=== PATIENT | female | born 1955 | race Two or more races ===

== ENCOUNTER 2020-07-31 10:26 | Inpatient (IN) | payer OTHER ==
[~2020-07-31] VITALS: Ht 160 cm; Wt 96.4 kg
[2020-07-31] MEDS ORDERED: KETOROLAC 30MG/ML VIAL IV STA (10:43)
[2020-07-31] MEDS ORDERED: INSULIN REGULAR (HUMULIN R) 300UNITS/3ML VIAL IV ONE (11:00)
[2020-07-31] MEDS ORDERED: DILTIAZEM HCL 5MG/ML 5ML VIAL IV ONE ×3 (11:00→12:00)
[2020-07-31] MEDS ORDERED: SODIUM CHLORIDE 0.9% 1,000 ML IV ONE (11:00)
[2020-07-31] MEDS ORDERED: DILTIAZEM HCL 180MG CAPSULE CD 24HR PO ONE (11:00)
[2020-07-31] MEDS ORDERED: DILTIAZEM HCL 125 MG in DEXT 5% WATER 100 ML IV ONE ×2 (12:00→14:00)
[2020-07-31] MEDS ORDERED: SODIUM CHLORIDE 0.9% 500 ML IV ONE (12:00)
[2020-07-31 12:22] LABS: HEMATOCRIT. 36.9 % (36.0-48.0); HEMOGLOBIN. 11.4 g/dL (12.0-16.0); MEAN CORPUSCULAR HEMOGLOBIN 23.7 pg (28.0-32.0); MEAN CORPUSCULAR VOLUME 76.5 fL (81.0-99.0); MEAN PLATELET VOLUME 8.4 fl (7.4-10.4); PLATELET 191 x1000/uL (130-400); RED BLOOD CELL COUNT 4.82 mill/uL (4.2-5.4); RED CELL DISTRIBUTION WIDTH 18.3 % (11.6-14.6)
[2020-07-31 12:29] LABS: CHLORIDE 97 mEq/L (98-107)
[2020-07-31 12:33] LABS: ETHANOL BLOOD < 10 mg/dL
[2020-07-31 12:52] LABS: PLATELET ESTIMATE NORMAL
[2020-07-31] MEDS ORDERED: ADENOSINE 3 MG/ML 2ML VIAL IV ONE (13:15)
[2020-07-31] MEDS ORDERED: ESMOLOL HCL 10MG/ML 10ML VIAL IV ONE (15:00)
[2020-07-31] MEDS ORDERED: ENOXAPARIN 80MG/0.8ML SYR SUBCUT NR (17:30)
[2020-07-31] MEDS ORDERED: ONDANSETRON HCL 4MG/2ML INJ IV PRN (19:00)
[2020-07-31] MEDS ORDERED: HYDROCODONE/ACETAMINOPHEN 5/325MG TABLET PO PRN (19:00)
[2020-07-31] MEDS ORDERED: DOCUSATE SODIUM 100MG CAPSULE PO PRN (19:00)
[2020-07-31] MEDS ORDERED: GUAIFENESIN 200MG/10ML SUGAR FREE UDC PO PRN (19:00)
[2020-07-31] MEDS ORDERED: DIPHENHYDRAMINE 50MG/ML VIAL IV PRN (19:00)
[2020-07-31] MEDS ORDERED: DEXTROSE 50% WATER 50ML SYRINGE IV PRN ×3 (19:00→19:15)
[2020-07-31] MEDS ORDERED: NA PHOS,M-B/NA PHOS,DI-BA ENEMA 118ML PR PRN (19:00)
[2020-07-31] MEDS ORDERED: INSULIN REGULAR (DRIP) 100 UNITS in SODIUM CHLORIDE 0.9% 99 ML IV PRN (19:00)
[2020-07-31] MEDS ORDERED: LORAZEPAM 0.5MG TABLET PO PRN (19:00)
[2020-07-31] MEDS ORDERED: CLONIDINE 0.1MG TABLET PO PRN (19:00)
[2020-07-31] MEDS ORDERED: ACETAMINOPHEN 325MG TABLET PO PRN (19:00)
[2020-07-31] MEDS ORDERED: MAGNESIUM/ALUMINUM HYDROXIDE/SIMETHICONE 30ML UDC PO PRN (19:00)
[2020-07-31] MEDS ORDERED: ACETAMINOPHEN 650MG SUPP PR PRN (19:00)
[2020-07-31 19:21] LABS: BG BASE EXCESS -7.7 mmol/L (-2.0-2.0); BG CARBOXYHEMOGLOBIN 0.9 % (0.5-1.5); BG DEOXYHEMOGLOBIN 5.8 % (0.0-5.0); BG FRACTION INSPIRED OXYGEN 21; BG HCO3 ACT 16.3 mmol/L (22.0-26.0); BG METHEMOGLOBIN 0.3 % (0.0-1.5); BG OXYGEN SATURATION 94.1 % (92.0-98.5); BG PCO2 28.8 mmHg (35.0-45.0); BG PO2 75.1 mmHg (75.0-100.0); BG SAMPLE SITE LEFT RADIAL; BG TOTAL HEMOGLOBIN 11.7 g/dL (12.0-18.0); BG VENT MODE ROOM AIR
[2020-07-31] MEDS ORDERED: INSULIN REGULAR (DRIP) 100 UNITS in SODIUM CHLORIDE 0.9% 100 ML IV SCH ×2 (20:00)
[2020-07-31] MEDS ORDERED: BLOOD SUGAR DIAGNOSTIC STRIP TEST SCH (20:00)
[2020-07-31] MEDS: BLOOD SUGAR DIAGNOSTIC STRIP TEST SCH ×4 (20:00→23:29)
[2020-07-31] MEDS: SODIUM CHLORIDE 0.9% 1,000 ML IV SCH (21:08)
[2020-07-31] MEDS: FAMOTIDINE 20MG/2ML VIAL IV SCH (21:08)
[2020-07-31] MEDS: PIPERACILLIN/TAZ 3.375G PREMIX 50 ML IV SCH (21:08)
[2020-08-01] MEDS: BLOOD SUGAR DIAGNOSTIC STRIP TEST SCH ×20 (00:35→20:41)
[2020-08-01] MEDS: PIPERACILLIN/TAZ 3.375G PREMIX 50 ML IV SCH ×4 (00:52→20:37)
[2020-08-01 01:17] LABS: CHLORIDE 101 mEq/L (98-107)
[2020-08-01 01:24] LABS: LDL CHOLESTEROL 40 mg/dL (5-100); PHOSPHORUS 1.9 mg/dL (2.5-4.9)
[2020-08-01 01:26] LABS: HDL CHOLESTEROL 25 mg/dL (40-59)
[2020-08-01 01:27] LABS: CREATINE KINASE 559 IU/L (26-192)
[2020-08-01 01:28] LABS: CREATINE KINASE MB FRACTION 8.2 ng/mL (0.5-3.6)
[2020-08-01 01:37] LABS: INR 1.1; PROTHROMBIN TIME 11.9 sec (9.6-11.0)
[2020-08-01 04:39] LABS: HEMATOCRIT. 35.9 % (36.0-48.0); HEMOGLOBIN. 11.7 g/dL (12.0-16.0); MEAN CORPUSCULAR HEMOGLOBIN 24.4 pg (28.0-32.0); PLATELET 198 x1000/uL (130-400); RED BLOOD CELL COUNT 4.79 mill/uL (4.2-5.4)
[2020-08-01 04:46] LABS: CHLORIDE 103 mEq/L (98-107)
[2020-08-01 04:49] LABS: INR 1.1; PROTHROMBIN TIME 11.9 sec (9.6-11.0)
[2020-08-01 04:54] LABS: LDL CHOLESTEROL 42 mg/dL (5-100)
[2020-08-01 04:55] LABS: CREATINE KINASE 649 IU/L (26-192); CREATINE KINASE MB FRACTION 7.1 ng/mL (0.5-3.6); HDL CHOLESTEROL 28 mg/dL (40-59)
[2020-08-01 04:56] LABS: T4 FREE 1.61 ng/dL (0.76-1.46)
[2020-08-01] MEDS: SODIUM CHLORIDE 0.9% 1,000 ML IV SCH (05:11)
[2020-08-01 05:59] LABS: PLATELET ESTIMATE NORMAL
[2020-08-01] MEDS: ASPIRIN 81MG EC TABLET PO SCH (09:00)
[2020-08-01] MEDS: FAMOTIDINE 20MG/2ML VIAL IV SCH (09:00)
[2020-08-01] MEDS: KCL 20MEQ/100ML PREMIX 100 ML IV SCH ×2 (10:00→10:09)
[2020-08-01] MEDS ORDERED: LIDOCAINE HCL 1% 20ML VIAL (Pyxis) INJ ONE (10:51)
[2020-08-01] MEDS: ENOXAPARIN 80MG/0.8ML SYR SUBCUT SCH (11:00)
[2020-08-01] MEDS: VANCOMYCIN 1 G PREMIX 200 ML IV SCH (11:00)
[2020-08-01] MEDS ORDERED: DEXT 5%/0.9% NACL 1,000 ML IV ONE (12:30)
[2020-08-01] MEDS ORDERED: DEXTROSE 50% WATER 50ML SYRINGE IV PRN (13:00)
[2020-08-01] MEDS: INSULIN LISPRO 100 UNITS/ML SUBCUT SCH ×2 (13:28→20:47)
[2020-08-01] MEDS: DILTIAZEM HCL 60MG TABLET PO SCH (14:00)
[2020-08-01] MEDS ORDERED: INSULIN GLARGINE UD 100 UNITS/ML SYR SUBCUT SCH (23:45)
[2020-08-02 05:17] LABS: HEMATOCRIT. 30.5 % (36.0-48.0); HEMOGLOBIN. 9.8 g/dL (12.0-16.0); MEAN CORPUSCULAR HEMOGLOBIN 23.9 pg (28.0-32.0); MEAN CORPUSCULAR VOLUME 74.9 fL (81.0-99.0); MEAN PLATELET VOLUME 8.4 fl (7.4-10.4); PLATELET 165 x1000/uL (130-400); RED BLOOD CELL COUNT 4.08 mill/uL (4.2-5.4); RED CELL DISTRIBUTION WIDTH 18.1 % (11.6-14.6)
[2020-08-02] MEDS: PIPERACILLIN/TAZ 3.375G PREMIX 50 ML IV SCH ×2 (05:48→23:56)
[2020-08-02] MEDS: DILTIAZEM HCL 60MG TABLET PO SCH ×4 (06:00→22:34)
[2020-08-02 07:45] LABS: PLATELET ESTIMATE NORMAL
[2020-08-02] MEDS: INSULIN LISPRO 100 UNITS/ML SUBCUT SCH ×6 (07:50→22:28)
[2020-08-02] MEDS: BLOOD SUGAR DIAGNOSTIC STRIP TEST SCH ×4 (09:52→22:28)
[2020-08-02] MEDS: VANCOMYCIN 1 G PREMIX 200 ML IV SCH (10:00)
[2020-08-02] MEDS ORDERED: INSULIN GLARGINE UD 100 UNITS/ML SYR SUBCUT SCH ×2 (10:00→22:00)
[2020-08-02] MEDS: FAMOTIDINE 20MG/2ML VIAL IV SCH (10:10)
[2020-08-02] MEDS: ASPIRIN 81MG EC TABLET PO SCH (10:10)
[2020-08-02] MEDS: ENOXAPARIN 80MG/0.8ML SYR SUBCUT SCH ×2 (22:16→22:27)
[2020-08-02] MEDS: SODIUM CHLORIDE 0.9% 1,000 ML IV SCH (22:27)
[2020-08-03] MEDS: SODIUM CHLORIDE 0.9% 1,000 ML IV SCH ×2 (03:31→14:45)
[2020-08-03 04:40] LABS: BASOPHILS % 0.5 % (0.0-2.0); CHLORIDE 105 mEq/L (98-107); EOSINOPHILS % 2.4 % (0.0-5.0); HEMATOCRIT. 30.2 % (36.0-48.0); HEMOGLOBIN. 9.8 g/dL (12.0-16.0); LYMPHOCYTES % 13.1 % (20.0-50.0); MEAN PLATELET VOLUME 7.9 fl (7.4-10.4); MONOCYTES % 3.9 % (2.0-8.0); NEUTROPHILS % 80.1 % (40.0-76.0); PLATELET 142 x1000/uL (130-400); RED BLOOD CELL COUNT 4.08 mill/uL (4.2-5.4); RED CELL DISTRIBUTION WIDTH 18.1 % (11.6-14.6)
[2020-08-03] MEDS: PIPERACILLIN/TAZ 3.375G PREMIX 50 ML IV SCH ×3 (06:04→18:00)
[2020-08-03] MEDS: DILTIAZEM HCL 60MG TABLET PO SCH ×3 (06:05→22:00)
[2020-08-03] MEDS: INSULIN LISPRO 100 UNITS/ML SUBCUT SCH ×7 (06:30→21:00)
[2020-08-03] MEDS: BLOOD SUGAR DIAGNOSTIC STRIP TEST SCH ×4 (06:59→21:00)
[2020-08-03] MEDS ORDERED: POTASSIUM CHLORIDE INJ 40 MEQ in DEXT 5% WATER 250 ML IV SCH (09:00)
[2020-08-03] MEDS: ASPIRIN 81MG EC TABLET PO SCH (10:41)
[2020-08-03] MEDS: ENOXAPARIN 80MG/0.8ML SYR SUBCUT SCH ×2 (10:42→21:00)
[2020-08-03] MEDS ORDERED: LORAZEPAM 2MG/ML CPJ IV PRN ×2 (11:45→23:45)
[2020-08-03] MEDS: FAMOTIDINE 20MG/2ML VIAL IV SCH (12:27)
[2020-08-03 13:59] LABS: CLARITY URINE TURBID (CLEAR); COLOR URINE YELLOW (YELLOW); KETONES URINE 1+ (NEGATIVE); LEUKOCYTE ESTERASE URINE 1+ (NEGATIVE); NITRITE URINE NEGATIVE (NEGATIVE); OCCULT BLOOD URINE 2+ (NEGATIVE); PH URINE 5.5 (4.5-8.0); PROTEIN URINE TRACE (NEGATIVE); SPECIFIC GRAVITY URINE 1.015 (1.005-1.030)
[2020-08-03 23:25] VITALS: BP 135/67
[2020-08-04] VITALS (11 sets, daily range): BP systolic 123–164; BP diastolic 61–77
[2020-08-04] MEDS: INSULIN GLARGINE UD 100 UNITS/ML SYR SUBCUT SCH ×3 (00:29→22:38)
[2020-08-04] MEDS: SODIUM CHLORIDE 0.9% 1,000 ML IV SCH (00:55)
[2020-08-04] MEDS: PIPERACILLIN/TAZOBACTAM 3.375 G in DEXT 5% WATER 100 ML IV SCH ×4 (01:56→20:42)
[2020-08-04 06:11] LABS: CHLORIDE 108 mEq/L (98-107)
[2020-08-04 06:15] LABS: BASOPHILS % 0.2 % (0.0-2.0); HEMATOCRIT. 26.6 % (36.0-48.0); HEMOGLOBIN. 8.7 g/dL (12.0-16.0); LYMPHOCYTES % 12.4 % (20.0-50.0); MEAN CORPUSCULAR HEMOGLOBIN 23.9 pg (28.0-32.0); MEAN CORPUSCULAR VOLUME 73.5 fL (81.0-99.0); MEAN PLATELET VOLUME 8.3 fl (7.4-10.4); NEUTROPHILS % 80.4 % (40.0-76.0); PLATELET 156 x1000/uL (130-400); RED BLOOD CELL COUNT 3.62 mill/uL (4.2-5.4); RED CELL DISTRIBUTION WIDTH 17.7 % (11.6-14.6)
[2020-08-04] MEDS: DILTIAZEM HCL 60MG TABLET PO SCH ×3 (06:30→22:37)
[2020-08-04] MEDS: BLOOD SUGAR DIAGNOSTIC STRIP TEST SCH ×4 (06:50→21:39)
[2020-08-04] MEDS ORDERED: POTASSIUM CHLORIDE 20MEQ TABLET SR PO NR ×4 (07:00→21:00)
[2020-08-04] MEDS: INSULIN LISPRO 100 UNITS/ML SUBCUT SCH ×7 (07:06→21:00)
[2020-08-04] MEDS: FAMOTIDINE 20MG/2ML VIAL IV SCH (08:30)
[2020-08-04] MEDS: ASPIRIN 81MG EC TABLET PO SCH (08:30)
[2020-08-04] MEDS: ENOXAPARIN 80MG/0.8ML SYR SUBCUT SCH (08:31)
[2020-08-04] MEDS ORDERED: MAGNESIUM 1 G PREMIX 100 ML IV SCH (11:00)
[2020-08-04] MEDS: LACTULOSE 20G/30ML UDC PO SCH ×2 (11:08→14:00)
[2020-08-04] MEDS: VANCOMYCIN 1,250 MG in DEXT 5% WATER 250 ML IV SCH (16:00)
[2020-08-04] MEDS ORDERED: SULF1TAB48 MT (16:08)
[2020-08-04] MEDS ORDERED: DILT60TA41 MT (16:09)
[2020-08-04] MEDS ORDERED: PROT40 MT (16:09)
[2020-08-04] MEDS ORDERED: INSU100I28 SQ (16:09)
[2020-08-04] MEDS ORDERED: FERR325T23 MT (17:06)
[2020-08-04] MEDS: PANTOPRAZOLE SODIUM 40 MG/VIAL IV SCH (17:31)
[2020-08-04] MEDS: FERROUS SULFATE 325MG TABLET PO SCH (17:32)
[2020-08-05] VITALS (9 sets, daily range): BP systolic 130–156; BP diastolic 62–94
[2020-08-05] MEDS ORDERED: POTASSIUM CHLORIDE 20MEQ TABLET SR PO NR ×2 (00:45→10:30)
[2020-08-05] MEDS: PIPERACILLIN/TAZOBACTAM 3.375 G in DEXT 5% WATER 100 ML IV SCH ×3 (01:00→17:32)
[2020-08-05] MEDS: VANCOMYCIN 1,250 MG in DEXT 5% WATER 250 ML IV SCH (04:23)
[2020-08-05] MEDS: DILTIAZEM HCL 60MG TABLET PO SCH ×3 (05:32→21:11)
[2020-08-05] MEDS: BLOOD SUGAR DIAGNOSTIC STRIP TEST SCH ×4 (06:12→21:15)
[2020-08-05] MEDS: INSULIN LISPRO 100 UNITS/ML SUBCUT SCH ×7 (06:35→21:00)
[2020-08-05 06:50] LABS: BASOPHILS % 0.4 % (0.0-2.0); EOSINOPHILS % 2.4 % (0.0-5.0); HEMATOCRIT. 27.9 % (36.0-48.0); LYMPHOCYTES % 13.7 % (20.0-50.0); MEAN CORPUSCULAR HEMOGLOBIN 23.7 pg (28.0-32.0); MEAN CORPUSCULAR VOLUME 73.3 fL (81.0-99.0); MEAN PLATELET VOLUME 8.1 fl (7.4-10.4); MONOCYTES % 3.8 % (2.0-8.0); NEUTROPHILS % 79.7 % (40.0-76.0); PLATELET 179 x1000/uL (130-400); RED CELL DISTRIBUTION WIDTH 17.8 % (11.6-14.6)
[2020-08-05 07:24] LABS: CHLORIDE 108 mEq/L (98-107)
[2020-08-05] MEDS: FERROUS SULFATE 325MG TABLET PO SCH ×3 (09:13→17:33)
[2020-08-05] MEDS: PANTOPRAZOLE SODIUM 40 MG/VIAL IV SCH ×2 (09:13→17:33)
[2020-08-05] MEDS ORDERED: LIDOCAINE HCL 1% 20ML VIAL (Pyxis) INJ ONE (10:11)
[2020-08-05] MEDS ORDERED: SODIUM BICARBONATE 4% (2.4MEQ) 5ML VIAL IV ONE (10:11)
[2020-08-05] MEDS ORDERED: MAGNESIUM 4 G PREMIX 100 ML IV NR (11:30)
[2020-08-05] MEDS: INSULIN GLARGINE UD 100 UNITS/ML SYR SUBCUT SCH ×2 (11:48→22:28)
[2020-08-05 12:41] LABS: BG BASE EXCESS 1.7 mmol/L (-2.0-2.0); BG CARBOXYHEMOGLOBIN 1.2 % (0.5-1.5); BG DEOXYHEMOGLOBIN 3.5 % (0.0-5.0); BG FRACTION INSPIRED OXYGEN 21; BG METHEMOGLOBIN 0.3 % (0.0-1.5); BG OXYGEN SATURATION 96.4 % (92.0-98.5); BG PCO2 34.1 mmHg (35.0-45.0); BG PH 7.483 (7.350-7.450); BG PO2 84.6 mmHg (75.0-100.0); BG SAMPLE SITE RIGHT BRACHIAL; BG TOTAL HEMOGLOBIN 10.1 g/dL (12.0-18.0); BG VENT MODE ROOM AIR
[2020-08-05] MEDS: VANCOMYCIN 1 G PREMIX 200 ML IV SCH (18:46)
[2020-08-06] VITALS (7 sets, daily range): BP systolic 121–161; BP diastolic 61–90
[2020-08-06] MEDS: DILTIAZEM HCL 60MG TABLET PO SCH ×2 (06:03→14:22)
[2020-08-06] MEDS: BLOOD SUGAR DIAGNOSTIC STRIP TEST SCH ×3 (06:03→16:50)
[2020-08-06] MEDS: VANCOMYCIN 1 G PREMIX 200 ML IV SCH ×2 (06:05→17:56)
[2020-08-06 06:09] LABS: CHLORIDE 106 mEq/L (98-107)
[2020-08-06 06:12] LABS: BASOPHILS % 0.4 % (0.0-2.0); EOSINOPHILS % 2.7 % (0.0-5.0); HEMATOCRIT. 27.8 % (36.0-48.0); HEMOGLOBIN. 9.1 g/dL (12.0-16.0); LYMPHOCYTES % 13.5 % (20.0-50.0); MEAN CORPUSCULAR HEMOGLOBIN 23.8 pg (28.0-32.0); MEAN PLATELET VOLUME 8.1 fl (7.4-10.4); MONOCYTES % 4.1 % (2.0-8.0); NEUTROPHILS % 79.3 % (40.0-76.0); PLATELET 199 x1000/uL (130-400); RED BLOOD CELL COUNT 3.81 mill/uL (4.2-5.4); RED CELL DISTRIBUTION WIDTH 17.5 % (11.6-14.6)
[2020-08-06] MEDS: INSULIN LISPRO 100 UNITS/ML SUBCUT SCH ×6 (06:50→17:20)
[2020-08-06] MEDS ORDERED: POTASSIUM CHLORIDE 20MEQ TABLET SR PO NR (08:30)
[2020-08-06] MEDS ORDERED: LOSARTAN POTASSIUM 25 MG TABLET PO SCH (09:00)
[2020-08-06] MEDS ORDERED: FLUCONAZOLE 100MG TABLET PO SCH (09:00)
[2020-08-06] MEDS: FERROUS SULFATE 325MG TABLET PO SCH ×3 (09:52→17:56)
[2020-08-06] MEDS: INSULIN GLARGINE UD 100 UNITS/ML SYR SUBCUT SCH (09:53)
[2020-08-06] MEDS: PANTOPRAZOLE SODIUM 40 MG/VIAL IV SCH (09:59)
[2020-08-06] MEDS ORDERED: PANTOPRAZOLE 40MG DR TABLET PO SCH (21:00)
== END 2020-08-06 20:12 | DRG 871 ==
LOC: ER 10:26 → SUPCPDRO 19:59 → EDBEDREQSVC 08-02 13:11 → 3WST 08-02 14:48 → MICUSO 08-02 14:48 → UNDOADMIN 08-02 14:48
PROVIDERS: ADMIT Internal Medicine; ATTEND Internal Medicine
PROC: 02HV33Z Insertion of Infusion Device into Superior Vena Cava, Percutaneous Approach (ICD-10-PCS; principal; 2020-08-05)
PROC: B548ZZA Ultrasonography of Superior Vena Cava, Guidance (ICD-10-PCS; 2020-08-05)
DX: A41.9 Sepsis, unspecified organism (principal); E11.10 Type 2 diabetes mellitus with ketoacidosis without coma; J18.9 Pneumonia, unspecified organism; L03.311 Cellulitis of abdominal wall; N39.0 Urinary tract infection, site not specified; M48.56XA Collapsed vertebra, not elsewhere classified, lumbar region, initial encounter for fracture; D68.69 Other thrombophilia; G93.40 Encephalopathy, unspecified; E87.6 Hypokalemia; I10 Essential (primary) hypertension; K80.20 Calculus of gallbladder without cholecystitis without obstruction; Z20.822 Contact with and (suspected) exposure to COVID-19; K76.0 Fatty (change of) liver, not elsewhere classified; D64.9 Anemia, unspecified; K57.30 Diverticulosis of large intestine without perforation or abscess without bleeding; M47.816 Spondylosis without myelopathy or radiculopathy, lumbar region; M81.0 Age-related osteoporosis without current pathological fracture; N20.0 Calculus of kidney; E05.90 Thyrotoxicosis, unspecified without thyrotoxic crisis or storm; E61.1 Iron deficiency; I48.0 Paroxysmal atrial fibrillation; R29.6 Repeated falls; S30.1XXA Contusion of abdominal wall, initial encounter; G90.8 Other disorders of autonomic nervous system; E66.9 Obesity, unspecified; Z68.37 Body mass index [BMI] 37.0-37.9, adult; Z79.4 Long term (current) use of insulin; W01.0XXA Fall on same level from slipping, tripping and stumbling without subsequent striking against object, initial encounter; Y93.89 Activity, other specified; Y92.89 Other specified places as the place of occurrence of the external cause; Y99.8 Other external cause status; Z79.899 Other long term (current) drug therapy
CPT/HCPCS: 36415; 36600; 70551; 71045; 74176; 76700; 76937; 80048; 80053; 80202; 80320; 81003; 82140; 82375; 82728; 82805; 82962; 83540; 83550; 83735; 84132; 84145; 84484; 85014; 85018; 85025; 87426; 87635; 93005; 93306; 93880; 93970; 97162; 97530; 99285; A6261; C1725; C9113; J0153; J1650; J1815; J1885; J2543; J3370; J3475; J3480; J3490; J7030; J7040; J7050; J7060; G0480